=== PATIENT | male | born 1985 | race Caucasian/White ===

== ENCOUNTER 2024-05-14 14:29 | Emergency (ER) | payer SELFPAY ==
[~2024-05-14] VITALS: Ht 180.3 cm; Wt 79.0 kg
[2024-05-14 14:34] VITALS: O2SAT 99
[2024-05-14 14:40] VITALS: BP 143/79; PULSE 69; RESP 16; TEMP 97.6; O2SAT 98
== END 2024-05-14 23:56 | disposition left against medical advice (07) ==
LOC: ER 14:29
DX: R03.0 Elevated blood-pressure reading, without diagnosis of hypertension (principal); R51.9 Headache, unspecified
CPT/HCPCS: 99281